=== PATIENT | male | born 1985 | race Caucasian/White ===

== ENCOUNTER 2022-11-06 23:42 | Emergency (ER) | payer SELFPAY ==
[~2022-11-06] VITALS: Ht 167.6 cm; Wt 82.0 kg
[2022-11-06 23:44] VITALS: BP 124/72; PULSE 62; RESP 18; TEMP 97.9; O2SAT 99
[2022-11-07] MEDS ORDERED: LORAZEPAM 0.5MG TABLET PO ONE (00:15)
== END 2022-11-07 01:27 | disposition home or self-care (01) ==
LOC: ER 23:42
DX: F41.9 Anxiety disorder, unspecified (principal)
CPT/HCPCS: 99283; Z7610 ×2